=== PATIENT | male | born 1960 | race Caucasian/White ===

== ENCOUNTER 2018-01-12 12:34 | Emergency (ER) | payer MEDICARE, OTHER ==
[~2018-01-12] VITALS: Ht 185.4 cm; Wt 108.9 kg
[2018-01-12] MEDS ORDERED: ADVAIR 250-501 EACH INH (12:46)
[2018-01-12] MEDS ORDERED: ZIAC 2.5-6.25 MG1 EA PO (12:46)
[2018-01-12] MEDS ORDERED: LISINOPRIL5 MG PO (12:46)
[2018-01-12] MEDS ORDERED: LIPITOR10 MG PO (12:46)
[2018-01-12] MEDS ORDERED: CILOXAN5 ML OS (13:17)
== END 2018-01-12 13:40 | disposition home or self-care (01) ==
LOC: ED 12:34
DX: S05.92XA Unspecified injury of left eye and orbit, initial encounter (principal); W22.8XXA Striking against or struck by other objects, initial encounter; I10 Essential (primary) hypertension; E78.00 Pure hypercholesterolemia, unspecified; J45.909 Unspecified asthma, uncomplicated; Z88.0 Allergy status to penicillin; Z79.899 Other long term (current) drug therapy
CPT/HCPCS: 99283